=== PATIENT | male | born 1995 | race Two or more races ===

== ENCOUNTER 2021-06-17 18:06 | Emergency (ER) | payer MEDICAID, OTHER ==
[~2021-06-17] VITALS: Ht 182.9 cm; Wt 88.5 kg
[2021-06-17 18:09] VITALS: BP 121/84
== END 2021-06-18 01:06 | disposition left against medical advice (07) ==
LOC: EDBD 18:06 → ER 18:06
DX: R51.9 Headache, unspecified (principal); Z53.21 Procedure and treatment not carried out due to patient leaving prior to being seen by health care provider; V43.92XA Unspecified car occupant injured in collision with other type car in traffic accident, initial encounter; Y93.89 Activity, other specified; Y92.488 Other paved roadways as the place of occurrence of the external cause; Y99.8 Other external cause status